=== PATIENT | male | born 1955 | race Caucasian/White ===

== ENCOUNTER 2024-08-03 09:25 | Emergency (ER) | payer MEDICARE, MEDICAID ==
[~2024-08-03] VITALS: Ht 180.3 cm; Wt 99.3 kg
[2024-08-03 09:28] VITALS: BP 139/82; PULSE 99; TEMP 97; O2SAT 95
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
[2024-08-03 09:47] VITALS: RESP 16
[2024-08-03] MEDS: ketorolac trometh 15mg/ml vial 15 MG/ML ML IM ONE (09:47)
--- NOTE | 2024-08-03 10:29 | RADIOLOGY REPORT ---
INDICATION: Back pain COMPARISON: None TECHNIQUE: 3 views of the lumbar spine were obtained. FINDINGS: Mild anterolisthesis of L3 on L4. Severe multilevel degenerative disc disease of the lumbosacral spine. No acute fracture, vertebral compression deformity or aggressive osseous lesions. The paravertebral soft tissues are grossly unremarkable. IMPRESSION: No acute fracture. Severe multilevel degenerative disc disease of the lumbosacral spine.
--- NOTE | 2024-08-03 10:30 | RADIOLOGY REPORT ---
[facility] INDICATION: Back pain COMPARISON: None TECHNIQUE:4 views of the thoracic spine were obtained. FINDINGS: The thoracic vertebral alignment is normal. The intervertebral disc spaces are well-maintained. No significant facet arthropathy is noted. No acute fracture, vertebral compression deformity or aggressive osseous lesions. The imaged thorax and abdomen are grossly unremarkable. IMPRESSION: No acute fracture.
--- NOTE | 2024-08-03 10:31 | RADIOLOGY REPORT ---
[facility] EXAMINATION: DI RIBS,UNILAT INDICATION: Trauma COMPARISON: None TECHNIQUE: Frontal view of the chest and 3 views of the right ribs FINDINGS: No focal consolidation, pleural effusion or significant pneumothorax. Normal cardiomediastinal silhou ette. No displaced right rib fracture. IMPRESSION: No acute cardiopulmonary disease. No displaced right rib fracture.
[2024-08-03] MEDS ORDERED: LIDO-52 TOP (10:43)
[2024-08-03] MEDS ORDERED: IBUP-1986 PO (10:43)
[2024-08-03] MEDS: LIDOcaine 5% patch TP ONE (10:48)
== END 2024-08-03 10:53 | disposition home or self-care (01) ==
LOC: ER 09:26
DX: S39.92XA Unspecified injury of lower back, initial encounter (principal); W22.09XA Striking against other stationary object, initial encounter; Y93.89 Activity, other specified; Y92.89 Other specified places as the place of occurrence of the external cause; Y99.8 Other external cause status
CPT/HCPCS: 71100; 72074; 72100; 96372; 99284; J1885